=== PATIENT | male | born 1975 | race Caucasian/White ===

== ENCOUNTER 2023-11-19 17:37 | Outpatient (CLI) | payer OTHER, SELFPAY ==
--- NOTE | ~2023-11-19 | XR_ITS ---
3 VIEWS LUMBAR SPINE Ordering provider: Que Cazares, PAJenny History: . Chronic low back pain/Hx of low back surgery x30 yrs . Comparison: None. FINDINGS: VERTEBRAL BODIES: No visible fracture or subluxation. Postoperative changes at the level of L5-S1. DISK SPACES: Narrowing of the disc L4-L5 and L5-S1. SOFT TISSUES: Normal. IMPRESSION: No acute osseous abnormality lumbar spine. Reviewed, dictated and finalized at location A.
--- NOTE | ~2023-11-19 | XR_ITS ---
XR shoulder LT min 2V Ordering provider: Que Cazares, KASSY History: . left shoulder pain x6mo, NKI . Comparison: None. FINDINGS: BONES: No acute fracture or dislocation. JOINT SPACES: The acromioclavicular joint shows osteoarthritic changes. The glenohumeral joint is nor mal. SOFT TISSUES: Normal. IMPRESSION: No acute osseous abnormality left shoulder. Con Reviewed, dictated and finalized at location A.
== END 2023-11-19 17:38 | disposition home or self-care (01) ==
PROVIDERS: PCP Physician Assistant; Visit Provider Physician Assistant
DX: M25.512 Pain in left shoulder (principal); M54.50 Low back pain, unspecified
CPT/HCPCS: 72100; 73030